=== PATIENT | female | born 1955 | race Hispanic/Latino ===

== ENCOUNTER 2019-02-18 11:46 | Day surgery (SDC) | payer OTHER ==
--- NOTE | 2019-02-17 08:00 | NUR ---
PT REPORTS NOT COMPLETING PREP AND EATING DINNER LAST NIGHT. TRENTON HARVEY AND NOTIFIED. PT TO BE RESCHEDULED FOR COLONOSCOPY.
[~2019-02-18] VITALS: Ht 152.4 cm; Wt 51.7 kg
[~2019-02-18 11:46] MED LIST: GERI-KOT8.6 MG PO; LEVOTHYROXINE25 MCG PO; MELOXICAM7.5 MG PO; MOBIC15 MG PO; NITROFURANTOIN100 M1 PO; NORCO 7.5-3251 EACH PO; PERCOCET 7.5-31 EACH PO; SIMVASTATIN10 MG PO; SYNTHROID50 MCG PO; ULTRAM50 MG PO; VALACYCLOVIR1000 MG PO; ZOFRAN ODT4 MG SL
--- NOTE | 2019-02-18 13:24 | NUR ---
02/18/19 1324 Juliane Keith 1321-PATIENT ARRIVED TO PACU ON 2L NC LAYING LEFT LATERAL. RR EVEN. AROUSES TO VERBAL STIMULI OPENING EYES VERY DROWSY CLOSES EYES BACK TO SLEEP. CO2 43. IVF INFUSING.
--- NOTE | 2019-02-19 13:38 | OR ---
[facility] [address], [place] [address] Signed DATE OF OPERATION: 02/18/2019 SURGEON: Meenakshi Oro MD PREOPERATIVE DIAGNOSES: Left lower abdominal pain and constipation. POSTOPERATIVE DIAGNOSES: 1. Sigmoid diverticular changes. 2. Mild proctitis. PROCEDURE: Total colonoscopy to cecum with biopsy of rectum. ANESTHESIA: Intravenous sedation, fentanyl 150 mcg and Versed 5 mg. INDICATION: This 63-year-old woman is a patient of [facility]MENC[facility] Dyson and has had progressive complaints of left lower abdominal pain and constipation. She has no family history of colon cancer. She has had no blood per rectum. developed a rectal cancer having undergone successful treatment for it, which she is concerned about colon cancer. She is admitted at this time to undergo colonoscopy. She understands the risks of bleeding, infection, and perforation. FINDINGS: Prep was excellent. Complete colonoscopy was undertaken to the cecum without question. She had diverticular changes of the sigmoid colon. No sign of polyps or cancer. She had mild proctitis of unlikely clinical significance. There was no evidence of polyps or cancer. DESCRIPTION OF PROCEDURE: The patient was brought to the endoscopy suite and placed in lateral decubitus position, given intravenous sedation to the point of slurred speech and nystagmus. Digital rectal examination was normal. An Olympus video colonoscope was passed in the rectum and manipulated throughout the colon noting diverticular change of the sigmoid and left colon. The scope was ultimately advanced to the cecum. The ileocecal valve and appendiceal orifice were normal. A brief attempt to intubate the ileum was unsuccessful and the scope was Electronically Signed By: MEENAKSHI ORO MD 02/19/19 1338 PATIENT NAME: JASON PAUL OPERATIVE REPORT DATE OF : 57 REPORT #: [id number] PHYSICIAN: MEENAKSHI ORO MD PCP: CEDRIC SANTOS NP REPORT IS CONFIDENTIAL AND NOT TO BE RELEASED WITHOUT AUTHORIZATION [facility] [address], [place] [address] Signed withdrawn from that point of examination. Upon withdrawal of scope showed no sign of polyps, colitis, or cancer, only diverticular changes of the left colon and sigmoid. Retroflexed view of the rectum showed mild proctitis, possibly bowel prep related. Narrow band imaging confirmed these findings. A biopsy was obtained. The scope was straightened, withdrawn, and removed. The patient was taken to recovery room in good condition. CONCLUDING DIAGNOSIS: Symptoms likely related to diverticulosis. We would recommend a high-fiber diet as well as added fluids in diet and Citrucel one scoop p.o. daily. She will return to the ongoing care of Cedric Santos. We recommend repeat colonoscopy in 10 years, sooner if symptoms should develop. MD SANDIE Rivera/ANTIONE /[id number] cc: Cedric Santos NP Copies: CEDRIC SANTOS NP ~ Electronically Signed By: MEENAKSHI ORO MD 02/19/19 1338 PATIENT NAME: JASON PAUL OPERATIVE REPORT DATE OF : 57 REPORT #: [id number] PHYSICIAN: MEENAKSHI ORO MD PCP: CEDRIC SANTOS NP REPORT IS CONFIDENTIAL AND NOT TO BE RELEASED WITHOUT AUTHORIZATION
== END 2019-02-18 14:25 | disposition home or self-care (01) ==
LOC: OPS 11:46 → DS 11:46 → OPS 14:25
PROVIDERS: Surgery
PROC: 0DBP8ZX Excision of Rectum, Via Natural or Artificial Opening Endoscopic, Diagnostic (ICD-10-PCS; principal; 2019-02-18 13:00)
DX: K57.30 Diverticulosis of large intestine without perforation or abscess without bleeding (principal); K62.89 Other specified diseases of anus and rectum; E03.9 Hypothyroidism, unspecified; E78.5 Hyperlipidemia, unspecified; Z87.440 Personal history of urinary (tract) infections
CPT/HCPCS: 99153; G0500; J2250; J3010; J7121

== ENCOUNTER 2024-02-11 08:23 | Day surgery (SDC) | payer MEDICARE, OTHER ==
--- NOTE | 2024-02-06 12:26 | NUR ---
PHONE CALL TO PT AT [phone] NO ANSWER, LEFT MESSAGE.
[~2024-02-11] VITALS: Ht 152.4 cm; Wt 57.3 kg
[~2024-02-11 08:23] MED LIST changes: +CEFAZOLIN SODIUM 2 GM/20 ML SYR IV SCH; +CELECOXIB200 MG PO; +CLARITIN10 M2 PO; +HYDROCODON-ACE1 EA11 PO; +IBLOOD GLUCOSE TEST STRIP 1 EA TEST VI PRN; +LACTATED RINGER'S 1,000 ML IV SCH; +LIDOCAINE HCL 1% 5 ML SDV INJ ONE; +OMEPRAZOLE20 MG PO; +TRANEXAMIC ACID 2,000 MG in SODIUM CHLORIDE 0.9% 100 ML IV SCH; +TYLENOL325 M1 PO
[2024-02-11 08:43] VITALS: BP 139/64
[2024-02-11] MEDS ORDERED: ZINC50 MG PO (08:47)
[2024-02-11] MEDS ORDERED: FISH OIL 1,2001 EACH PO (08:47)
[2024-02-11] MEDS ORDERED: DAILY VITAMIN1 EAC3 PO (08:47)
[2024-02-11] MEDS ORDERED: BUPIVACAINE HCL 0.5% 30 ML VIAL ONE (08:49)
[2024-02-11] MEDS ORDERED: CloNIDine HCl/Pf 1,000 MCG/10 ML VIAL ONE (08:49)
[2024-02-11] MEDS ORDERED: LIDOCAINE HCL 2% 5 ML SDV ONE ×2 (08:49→11:29)
[2024-02-11] MEDS ORDERED: MIDAZOLAM HCL 2 MG/2 ML VIAL ONE (08:49)
[2024-02-11] MEDS ORDERED: Ropivacaine HCl 0.5% 30 ML VIAL ONE (11:29)
[2024-02-11] MEDS ORDERED: DEXAMETHASONE SOD PHOS 4 MG/ML VIAL ONE (11:29)
[2024-02-11] MEDS ORDERED: propofoL 200 MG/20 ML VIAL ONE (11:29)
[2024-02-11] MEDS ORDERED: SODIUM CHLORIDE 0.9% 20 ML IV ONE (11:29)
[2024-02-11] MEDS ORDERED: KETOROLAC TROMETHAMINE 15 MG/ML VIAL IV PRN (12:00)
[2024-02-11] MEDS ORDERED: HYDROCODONE/ACETA 7.5/325 TAB PO PRN (12:00)
[2024-02-11] MEDS ORDERED: KETOROLAC TROMETHAMINE 30 MG/ML VIAL ONE (12:56)
[2024-02-11] MEDS ORDERED: SUGAMMADEX SODIUM 200 MG/2 ML ML ONE (12:56)
[2024-02-11] MEDS ORDERED: OXYCODONE HCL 5 MG TAB PO PRN (13:15)
--- NOTE | 2024-02-11 13:31 | NUR ---
02/11/24 1331 Shelli Avina PT TO PACU SLEEPY OFF AND ON, DENIES PAIN AND NAUSEA
[2024-02-11 13:55] VITALS: BP 165/69
--- NOTE | 2024-02-11 13:55 | NUR ---
PATIENT RETURNS TO ROOM 4 FROM PACU. REPORT TAKEN FROM TOMY ALMONTE. PATIENT IS AWAKE DURING REPORT BUT IS STILL DROWSY. VITAL SIGNS OBTAINED. PATIENT HYPERTENSIVE. BANDAGE TO LEFT SHOULDER IN PLACE, SMALL AMOUNT OF SANGUINOUS DISCHARGE ON BANDAGE. PATIENT DENIES ANY PAIN. SHE IS UNABLE TO MOVE HER FINGERS AND CANNOT FEEL ME TOUCH HER FINGERS. RADIAL PULSE IS STRONG. PATIENT DENIES ANY PAIN.
--- NOTE | 2024-02-11 14:09 | NUR ---
PATIENT EXPRESSES THE NEED TO URINATE AT THIS TIME. PATIENT AMBULATES TO THE RESTROOM. SHE STATES SHE FEELS A LITTLE DIZZY AND IS SLIGHTLY UNSTEADY ON HER FEET. PATIENT IS ABLE TO URINATE 250ML. PATIENT AMBULATES BACK TO ROOM 4 WITH ASSISTANCE. I EXPLAINED TO THE PATIENT AND TO THE PATIENT'S THE EXPECTATIONS FOR HER TO BE ABLE TO BE DISCHARGED AND THEY EXPRESS UNDERSTANDING. WATER AND CRACKERS PROVIDED TO PATIENT. SHE DENIES ANY OTHER NEEDS AT THIS TIME. BED IN LOWEST POSITION, CALL LIGHT WITHIN REACH. PATIENT'S AT BEDSIDE.
[2024-02-11 14:53] VITALS: BP 130/62
--- NOTE | 2024-02-11 14:56 | NUR ---
hourly rounding on patient. patient still reports no pain in her shoulder. she is still unable to move her fingers or feel her fingers when I touch her fingers. she has eaten crackers and drank a little bit of water. she is ready to go home, but I need to clarify if Dr. Avina plans on sending in an rx for pain. vital signs obtained and wdl. blood pressure has come down.
--- NOTE | 2024-02-11 15:01 | NUR ---
call to dr. avina to clarify if patient is going to be sent home with a pain medication. Dr. Avina states that he will send a prescription in to the pharmacy for the patient.
[2024-02-11] MEDS ORDERED: SEVOFLURANE 250 ML BTL INH ONE (15:05)
--- NOTE | 2024-02-11 15:20 | NUR ---
Patient allowed to get dressed at this time. Assisted patient with readjusting her slight with clothes on and showed her and her how to secure. Discharge teaching completed in detail. All questions answere. Ensured patient and knew how to operate the cryocuff. Patient and expressed understanding of all discharge teaching. patient discharged via wheelchair where her is to take her home.
[2024-02-11] MEDS ORDERED: SENNOSIDES 1 TAB PO SCH (21:00)
--- NOTE | 2024-02-14 19:31 | OR ---
[facility] [address] [place], [place] [address] Signed DATE OF OPERATION: 02/11/2024 SURGEON: Steve Avina MD PREOPERATIVE DIAGNOSIS: Left partial rotator cuff tear. POSTOPERATIVE DIAGNOSES: 1. Left partial rotator cuff tear. 2. Severe biceps tendinosis. PROCEDURE PERFORMED: Left shoulder arthroscopy with debridement and biceps release. RESEARCH CENTER DIRECTOR: Qing Gardner PA-C. Qing was present and critical for all portions of the procedure. ANESTHESIA: General. BLOOD LOSS: Minimal. BRIEF HISTORY: Shannan is a 68-year-old female, who had a prior rotator cuff repair, who continued to have pain. The MRI was consistent with a partial rotator cuff tear and tendinosis of the biceps. Risks, benefits, and alternatives of surgery were discussed with her and she elected to proceed. Once consent was obtained, she was taken to the operating room. After adequate anesthesia, she was placed in the beach chair position. All downside pressure points were well padded. The left shoulder was prepped and draped in a standard sterile fashion. The prior posterior incision was marked out and the shoulder was injected with 15 mL of 0.25% Marcaine with epinephrine as was subacromial space. Standard posterior portal was made, the scope was introduced in the shoulder. ARTHROSCOPIC FINDINGS: Significant synovitis was noted throughout the shoulder, particularly anteriorly and superiorly. The biceps was noted to be extensively torn with about 80% to 90% erosion. The labrum was intact. The glenohumeral surfaces were intact. There was some fraying of the undersurface of the rotator cuff and the sutures were visible, however, it Electronically Signed By: STEVE AVINA MD 02/14/241930 PATIENT NAME: SHANNAN PAUL OPERATIVE REPORT DATE OF : 57 REPORT #: [id number] PHYSICIAN: STEVE AVINA MD PCP: ALLEGRA BENTON MD REPORT IS CONFIDENTIAL AND NOT TO BE RELEASED WITHOUT AUTHORIZATION [facility] [address], [place] [address] Signed appeared to be mechanically stable. The subacromial space showed no significant bursitis. The superior surface of the rotator cuff was noted to be intact. DESCRIPTION OF OPERATION: Diagnostic arthroscopy was undertaken as noted above and the standard anterior portal was established using an outside in technique. The biceps was then released and allowed to retract out of the shoulder. The stump was then debrided and the synovitis was debrided. The scope was withdrawn, placed in subacromial space and the lateral portal was established. The subacromial space was found to be wide open with no evidence of rotator cuff tear. The scope was withdrawn. Portals were closed with 3-0 nylon and the shoulder was injected with 60 mg of Toradol. The portals were dressed with Allevyn and OpSite. She tolerated the procedure well. All sponge, needle, and instrument counts correct. Steve Avina MD BA/VERONICAL /[id number] Copies: ~ Electronically Signed By: STEVE AVINA MD 02/14/24 1931 PATIENT NAME: SHANNAN PAUL OPERATIVE REPORT DATE OF : 57 REPORT #: [id number] PHYSICIAN: STEVE AVINA MD PCP: ALLEGRA BENTON MD REPORT IS CONFIDENTIAL AND NOT TO BE RELEASED WITHOUT AUTHORIZATION
== END 2024-02-11 15:35 | disposition home or self-care (01) ==
LOC: DS 08:23
PROVIDERS: ATTEND Specialist
PROC: 0RBK4ZZ Excision of Left Shoulder Joint, Percutaneous Endoscopic Approach (ICD-10-PCS; 2024-02-11)
PROC: 0LS44ZZ Reposition Left Upper Arm Tendon, Percutaneous Endoscopic Approach (ICD-10-PCS; principal; 2024-02-11 13:00)
DX: M75.112 Incomplete rotator cuff tear or rupture of left shoulder, not specified as traumatic (principal); M75.22 Bicipital tendinitis, left shoulder; E78.00 Pure hypercholesterolemia, unspecified; E03.9 Hypothyroidism, unspecified; M06.9 Rheumatoid arthritis, unspecified; S43.432A Superior glenoid labrum lesion of left shoulder, initial encounter; X58.XXXA Exposure to other specified factors, initial encounter; Z79.899 Other long term (current) drug therapy
CPT/HCPCS: 01630; 64415; 76942; J0690; J0735; J1100; J1885; J2003; J2250; J2704; J2795; J7121